=== PATIENT | male | born 1935 | race Two or more races ===

== ENCOUNTER 2017-11-02 12:32 | Emergency (ER) | payer OTHER, MEDICAID ==
[~2017-11-02] VITALS: Ht 188 cm; Wt 86.2 kg
[~2017-11-02 12:32] MED LIST: ALPR0.254 PO; ATEN-60 PO; CLON0.2T PO; FAM20T PO; FURO20TA3 PO; GABA-339; INSLANTI; LEVO100T8 PO; LISI-646 PO; METF-371; POT20T PO; RASA1TAB; ROTI6DIS; SIMV20TA90 PO; SITA100T7 PO; TAMS0.4C36 PO; TRAM-297 PO
[2017-11-02 16:33] VITALS: BP 138/70
== END 2017-11-02 16:53 | disposition home or self-care (01) ==
LOC: ER 12:32
DX: S33.5XXA Sprain of ligaments of lumbar spine, initial encounter (principal); G51.0 Bell's palsy; Z79.4 Long term (current) use of insulin; E11.9 Type 2 diabetes mellitus without complications; I10 Essential (primary) hypertension; G20 Parkinson's disease; M79.1 Myalgia; Z86.73 Personal history of transient ischemic attack (TIA), and cerebral infarction without residual deficits; W18.2XXA Fall in (into) shower or empty bathtub, initial encounter; Y93.89 Activity, other specified; Y92.89 Other specified places as the place of occurrence of the external cause; Y99.8 Other external cause status
CPT/HCPCS: 72100; 93005

== ENCOUNTER 2018-03-04 12:06 | Inpatient (IN) | payer OTHER ==
[~2018-03-04] VITALS: Ht 182.9 cm; Wt 82.5 kg
[2018-03-04] MEDS: InsuLIN REG 1unit/0.01ml Soln (100units/ml) SC SCH ×2 (00:08→17:45)
[2018-03-04] MEDS ORDERED: SODIUM CHLORIDE 0.9% 1,000 ML IVB ONE (13:12)
[2018-03-04 13:23] LABS: Basophils # (auto) 0 uL; Basophils % (auto) 0.6 % (0.0-2.0); Eosinophils # (auto) 0.1 uL; Eosinophils % (auto) 1.8 % (0.0-7.0); Hematocrit 40.1 % (41.0-53.0); Hemoglobin 13.4 g/dL (13.5-17.5); Lymphocytes # (auto) 1.8 uL; Lymphocytes % (auto) 29.7 % (10.0-50.0); Mean Corpuscular Hemoglobin 29.5 pg (28.0-32.0); Mean Corpuscular Hgb Conc. 33.5 g/dL (32.0-36.0); Monocytes # (auto) 0.5 uL; Monocytes % (auto) 7.8 % (0.0-12.0); Neutrophils # (auto) 3.7 uL; Neutrophils % (auto) 60.1 % (37.0-80.0); Nucleated Red Blood Cells % 0.1 %; Platelet Count (auto) 140 10^3/uL (140-450); Red Blood Cells 4.55 10^6/uL (4.5-5.90); Red Cell Distribution Width 13.6 % (11.8-14.3); White Blood Cell 6.1 10^3/uL (4.4-10.8)
[2018-03-04 13:40] LABS: INR 1.06 (0.9-1.15); Partial Thromboplastin Time 27.1 sec (23.78-33.04); Prothrombin Time 11.3 sec (9.27-12.13)
[2018-03-04 13:44] LABS: Alanine Aminotransferase 33 U/L (16-61); Albumin 3.6 g/dL (3.4-5.0); Alkaline Phosphatase 71 U/L (45-117); Anion Gap 4 (5-15); Aspartate Aminotransferase 29 U/L (15-37); BUN/Creatinine Ratio 24.5; Bilirubin, Total 0.8 mg/dL (0.2-1.0); Blood Urea Nitrogen 25 mg/dL (7-18); Calcium 8.4 mg/dL (8.5-10.1); Carbon Dioxide 27 mmol/L (21-32); Chloride 113 mmol/L (98-107); GFR African American 90 mL/min; GFR Non-African American 74 mL/min; Glucose 125 mg/dL (74-106); Potassium 3.9 mmol/L (3.5-5.1); Sodium 144 mmol/L (136-145); Total Protein 7.1 g/dL (6.4-8.2)
[2018-03-04 13:52] LABS: Magnesium 2.1 mg/dL (1.6-2.6)
[2018-03-04] MEDS ORDERED: metroNIDAZOLE 500MG/100ML 100 ML IV ONE ×2 (15:00→16:30)
[2018-03-04] MEDS ORDERED: TAMS1CAP25 PO (15:19)
[2018-03-04] MEDS ORDERED: METO25TA5 PO (15:19)
[2018-03-04] MEDS ORDERED: DONE10TA40 PO (15:19)
[2018-03-04] MEDS ORDERED: TRAZ-220 PO (15:19)
[2018-03-04] MEDS ORDERED: OLAN2.5T32 PO (15:19)
[2018-03-04] MEDS ORDERED: MEMA1TAB2 PO (15:19)
[2018-03-04] MEDS ORDERED: LOSA-46 PO (15:19)
[2018-03-04] MEDS: SODIUM CHLORIDE 0.9% 1,000 ML IV SCH (15:31)
[2018-03-04] MEDS ORDERED: ACETAMINOPHEN 500 MG TAB PO PRN (15:45)
[2018-03-04] MEDS ORDERED: TEMAZEPAM 15 MG CAP PO PRN (15:45)
[2018-03-04] MEDS ORDERED: LORazepam 0.5 MG TAB PO PRN (15:45)
[2018-03-04] MEDS ORDERED: hydrALAZINE HCL 20 MG/ML VL IV PRN (15:45)
[2018-03-04] MEDS ORDERED: ONDANSETRON HCL 4 MG/2 ML VIAL IV PRN (15:45)
[2018-03-04] MEDS ORDERED: MORPHINE SULFATE 4 MG/ML SYR/VIAL IV PRN (15:45)
[2018-03-04] MEDS ORDERED: DEXTROSE (50%) 50ML SYRG IV PRN (15:45)
[2018-03-04] MEDS ORDERED: NITROGLYCERIN 0.4 MG SL TAB SL PRN (15:45)
[2018-03-04] MEDS ORDERED: cefTRIAXone 1GM/10ml IVPUSH 10 ML IV ONE (15:45)
[2018-03-04] MEDS ORDERED: traMADol HCL 50 MG TAB PO PRN ×2 (15:45)
[2018-03-04] MEDS ORDERED: GLUCAGON HYDROCHLORIDE (RDNA) 1 MG VIAL IM ONE ×2 (16:15→16:30)
[2018-03-04 16:31] LABS: Urine Bacteria NONE SEEN /hpf (None Seen); Urine Blood Negative /uL (Negative); Urine Specific Gravity 1.016 (1.001-1.035); Urine WBC 1 /hpf (0 - 3)
[2018-03-04] MEDS: ACCU-CHEK COMFORT CURVE STRIP VI SCH ×2 (17:45→22:00)
[2018-03-04] MEDS: TAMSULOSIN HYDROCHLORIDE 0.4 MG CAP PO SCH (18:00)
[2018-03-04] MEDS: metroNIDAZOLE 500MG/100ML 100 ML IV SCH (18:00)
[2018-03-04] MEDS: traZODone HCL 50 MG TAB PO SCH (23:22)
[2018-03-04] MEDS: DONEPEZIL HYDROCHLORIDE 5 MG TAB PO SCH (23:22)
[2018-03-04] MEDS: MEMANTINE HCL 5 MG TAB PO SCH (23:23)
[2018-03-04] MEDS: GABAPENTIN 300 MG CAP PO SCH (23:24)
[2018-03-04] MEDS: LISINOPRIL 20 MG TAB PO SCH (23:24)
[2018-03-04] MEDS: OLANZapine 5 MG TAB PO SCH (23:26)
[2018-03-05] MEDS ORDERED: metroNIDAZOLE 500MG/100ML 100 ML IV SCH
[2018-03-05] MEDS: metroNIDAZOLE 500MG/100ML 100 ML IV SCH ×5 (00:09→23:23)
[2018-03-05] MEDS: SODIUM CHLORIDE 0.9% 1,000 ML IV SCH (01:37)
[2018-03-05] MEDS: LEVOTHYROXINE SODIUM 100 MCG TAB PO SCH (06:37)
[2018-03-05 06:44] LABS: Basophils # (auto) 0 uL; Basophils % (auto) 0.6 % (0.0-2.0); Eosinophils # (auto) 0.1 uL; Eosinophils % (auto) 2.1 % (0.0-7.0); Hematocrit 40.1 % (41.0-53.0); Hemoglobin 13.5 g/dL (13.5-17.5); Lymphocytes # (auto) 1.3 uL; Lymphocytes % (auto) 27.2 % (10.0-50.0); Mean Corpuscular Hemoglobin 29.4 pg (28.0-32.0); Mean Corpuscular Hgb Conc. 33.7 g/dL (32.0-36.0); Mean Corpuscular Volume 87.3 fL (80.0-100.0); Monocytes # (auto) 0.4 uL; Monocytes % (auto) 7.4 % (0.0-12.0); Neutrophils # (auto) 3.1 uL; Neutrophils % (auto) 62.7 % (37.0-80.0); Nucleated Red Blood Cells % 0.1 %; Platelet Count (auto) 134 10^3/uL (140-450); Red Blood Cells 4.59 10^6/uL (4.5-5.90); Red Cell Distribution Width 13.7 % (11.8-14.3); White Blood Cell 4.9 10^3/uL (4.4-10.8)
[2018-03-05] MEDS: ACCU-CHEK COMFORT CURVE STRIP VI SCH ×4 (06:52→22:26)
[2018-03-05] MEDS: InsuLIN REG 1unit/0.01ml Soln (100units/ml) SC SCH ×4 (06:53→22:26)
[2018-03-05 06:59] LABS: Albumin 3.1 g/dL (3.4-5.0); Calcium 8.1 mg/dL (8.5-10.1); Potassium 3.6 mmol/L (3.5-5.1)
[2018-03-05] MEDS: RASAGILINE 1 MG PO SCH (07:00)
[2018-03-05 07:01] LABS: BUN/Creatinine Ratio 20.5
[2018-03-05 07:03] LABS: Bilirubin, Total 0.6 mg/dL (0.2-1.0); Total Protein 6.4 g/dL (6.4-8.2)
[2018-03-05] MEDS: cefTRIAXone 1GM/10ml IVPUSH 10 ML IV SCH (09:04)
[2018-03-05] MEDS: MEMANTINE HCL 5 MG TAB PO SCH ×2 (09:05→21:53)
[2018-03-05] MEDS: GABAPENTIN 300 MG CAP PO SCH ×2 (09:05→21:53)
[2018-03-05] MEDS: OLANZapine 5 MG TAB PO SCH ×2 (09:06→21:54)
[2018-03-05] MEDS: LISINOPRIL 20 MG TAB PO SCH ×2 (09:07→21:56)
[2018-03-05] MEDS ORDERED: PANTOPRAZOLE 40 MG TAB PO SCH (10:00)
[2018-03-05] MEDS: ROTIGOTINE 6 MG/24 HR TD SCH (10:00)
[2018-03-05] MEDS ORDERED: SENNA 8.6 MG TAB PO PRN (11:45)
[2018-03-05] MEDS ORDERED: SODIUM CHLORIDE 0.9% 1,000 ML IV SCH (11:45)
[2018-03-05] MEDS ORDERED: MINOXIDIL 2.5 MG TAB PO ONE (11:45)
[2018-03-05] MEDS ORDERED: LACTULOSE 20Gm/30ML SOLN PO ONE (11:45)
[2018-03-05] MEDS ORDERED: hydrALAZINE HCL 20 MG/ML VL IV PRN (11:45)
[2018-03-05] MEDS: APIXABAN 5 MG TAB PO SCH ×2 (12:27→21:53)
[2018-03-05] MEDS ORDERED: INFLUENZA QUAD 2018-2019 0.5 ML SYRG IM ONE (14:00)
[2018-03-05] MEDS: SOD CHL 0.45% 1,000 ML IV SCH (15:51)
[2018-03-05 16:30] VITALS: BP 146/71
[2018-03-05] MEDS: TAMSULOSIN HYDROCHLORIDE 0.4 MG CAP PO SCH (17:24)
[2018-03-05] MEDS: DONEPEZIL HYDROCHLORIDE 5 MG TAB PO SCH (21:53)
[2018-03-05] MEDS: traZODone HCL 50 MG TAB PO SCH (21:53)
[2018-03-05] MEDS: PANTOPRAZOLE 40 MG TAB PO SCH (21:53)
[2018-03-05] MEDS: MINOXIDIL 2.5 MG TAB PO SCH (21:56)
[2018-03-05 22:00] VITALS: BP 146/66
[2018-03-06 05:00] VITALS: BP 139/60
[2018-03-06] MEDS: metroNIDAZOLE 500MG/100ML 100 ML IV SCH ×4 (05:32→23:39)
[2018-03-06] MEDS: ACCU-CHEK COMFORT CURVE STRIP VI SCH ×4 (06:12→22:00)
[2018-03-06] MEDS: LEVOTHYROXINE SODIUM 100 MCG TAB PO SCH (06:12)
[2018-03-06] MEDS: InsuLIN REG 1unit/0.01ml Soln (100units/ml) SC SCH ×4 (06:12→22:00)
[2018-03-06] MEDS: SOD CHL 0.45% 1,000 ML IV SCH (06:12)
[2018-03-06] MEDS: RASAGILINE 1 MG PO SCH (06:13)
[2018-03-06 08:00] VITALS: BP 146/66
[2018-03-06 09:00] VITALS: BP 129/65
[2018-03-06] MEDS: ROTIGOTINE 6 MG/24 HR TD SCH (10:00)
[2018-03-06] MEDS: PANTOPRAZOLE 40 MG TAB PO SCH ×2 (10:19→22:34)
[2018-03-06] MEDS: cefTRIAXone 1GM/10ml IVPUSH 10 ML IV SCH (10:19)
[2018-03-06] MEDS: MEMANTINE HCL 5 MG TAB PO SCH ×2 (10:20→22:35)
[2018-03-06] MEDS: APIXABAN 5 MG TAB PO SCH ×2 (10:20→22:37)
[2018-03-06] MEDS: GABAPENTIN 300 MG CAP PO SCH ×2 (10:20→22:34)
[2018-03-06] MEDS: LISINOPRIL 20 MG TAB PO SCH ×2 (10:21→22:37)
[2018-03-06] MEDS: OLANZapine 5 MG TAB PO SCH ×2 (10:21→22:37)
[2018-03-06] MEDS: MINOXIDIL 2.5 MG TAB PO SCH ×2 (10:21→22:34)
[2018-03-06 13:00] VITALS: BP 142/70
[2018-03-06 17:00] VITALS: BP 164/72
[2018-03-06] MEDS: TAMSULOSIN HYDROCHLORIDE 0.4 MG CAP PO SCH (18:48)
[2018-03-06 22:00] VITALS: BP 129/59
[2018-03-06] MEDS: DONEPEZIL HYDROCHLORIDE 5 MG TAB PO SCH (22:35)
[2018-03-06] MEDS: traZODone HCL 50 MG TAB PO SCH (22:36)
[2018-03-07 05:00] VITALS: BP 124/58
[2018-03-07] MEDS: LEVOTHYROXINE SODIUM 100 MCG TAB PO SCH (05:50)
[2018-03-07] MEDS: metroNIDAZOLE 500MG/100ML 100 ML IV SCH (05:50)
[2018-03-07] MEDS: ACCU-CHEK COMFORT CURVE STRIP VI SCH ×2 (05:53→11:56)
[2018-03-07] MEDS: RASAGILINE 1 MG PO SCH (06:02)
[2018-03-07] MEDS: InsuLIN REG 1unit/0.01ml Soln (100units/ml) SC SCH ×2 (06:02→11:57)
[2018-03-07 08:04] LABS: Basophils # (auto) 0 uL; Basophils % (auto) 0.6 % (0.0-2.0); Eosinophils # (auto) 0.1 uL; Eosinophils % (auto) 1.9 % (0.0-7.0); Hematocrit 35.9 % (41.0-53.0); Hemoglobin 12.1 g/dL (13.5-17.5); Lymphocytes # (auto) 1.2 uL; Lymphocytes % (auto) 34.6 % (10.0-50.0); Mean Corpuscular Hemoglobin 29.5 pg (28.0-32.0); Mean Corpuscular Hgb Conc. 33.7 g/dL (32.0-36.0); Mean Corpuscular Volume 87.6 fL (80.0-100.0); Monocytes # (auto) 0.4 uL; Monocytes % (auto) 10.5 % (0.0-12.0); Neutrophils # (auto) 1.9 uL; Neutrophils % (auto) 52.4 % (37.0-80.0); Nucleated Red Blood Cells % 0.1 %; Platelet Count (auto) 146 10^3/uL (140-450); Red Cell Distribution Width 13.8 % (11.8-14.3); White Blood Cell 3.5 10^3/uL (4.4-10.8)
[2018-03-07 08:28] LABS: BUN/Creatinine Ratio 13.8; Calcium 7.3 mg/dL (8.5-10.1); Potassium 3.9 mmol/L (3.5-5.1)
[2018-03-07 09:00] VITALS: BP 115/52
[2018-03-07] MEDS: SOD CHL 0.45% 1,000 ML IV SCH (10:24)
[2018-03-07] MEDS: GABAPENTIN 300 MG CAP PO SCH (10:39)
[2018-03-07] MEDS: MEMANTINE HCL 5 MG TAB PO SCH (10:39)
[2018-03-07] MEDS: MINOXIDIL 2.5 MG TAB PO SCH (10:40)
[2018-03-07] MEDS: APIXABAN 5 MG TAB PO SCH (10:40)
[2018-03-07] MEDS: LISINOPRIL 20 MG TAB PO SCH (10:40)
[2018-03-07] MEDS: PANTOPRAZOLE 40 MG TAB PO SCH (10:40)
[2018-03-07] MEDS: OLANZapine 5 MG TAB PO SCH (10:41)
[2018-03-07] MEDS: ROTIGOTINE 6 MG/24 HR TD SCH (10:41)
[2018-03-07] MEDS ORDERED: MIN25T PO (11:14)
[2018-03-07 12:50] VITALS: BP 115/52
[2018-03-07] MEDS ORDERED: INFLUENZA QUAD 2018-2019 0.5 ML SYRG IM ONE (14:00)
[2018-03-08] MEDS ORDERED: ROTIGOTINE 2 MG/24 HR TD SCH (10:00)
[2018-03-08] MEDS ORDERED: VANC250PO PO (13:13)
== END 2018-03-07 14:32 | disposition home health service (06) | DRG 389 ==
LOC: ER 12:08 → TELE 12:09 → TELE-CENTR 03-05 08:31
PROVIDERS: ADMIT Internal Medicine; ATTEND Hospitalist
DX: K56.41 Fecal impaction (principal); I31.3 Pericardial effusion (noninflammatory); A04.72 Enterocolitis due to Clostridium difficile, not specified as recurrent; K52.9 Noninfective gastroenteritis and colitis, unspecified; K62.89 Other specified diseases of anus and rectum; R00.1 Bradycardia, unspecified; E11.9 Type 2 diabetes mellitus without complications; E78.5 Hyperlipidemia, unspecified; F03.90 Unspecified dementia, unspecified severity, without behavioral disturbance, psychotic disturbance, mood disturbance, and anxiety; G20 Parkinson's disease; N40.0 Benign prostatic hyperplasia without lower urinary tract symptoms; K29.70 Gastritis, unspecified, without bleeding; I70.8 Atherosclerosis of other arteries; M19.90 Unspecified osteoarthritis, unspecified site; K76.89 Other specified diseases of liver; G51.0 Bell's palsy; H54.62 Unqualified visual loss, left eye, normal vision right eye; I11.9 Hypertensive heart disease without heart failure; Z82.49 Family history of ischemic heart disease and other diseases of the circulatory system; Z74.01 Bed confinement status; Z83.3 Family history of diabetes mellitus; Z86.73 Personal history of transient ischemic attack (TIA), and cerebral infarction without residual deficits
CPT/HCPCS: 36415; 71045; 74021; 74176; 80048; 80053; 81001; 82150; 82962; 83036; 83605; 83690; 83735; 84443; 84484; 85025; 85610; 85652; 85730; 86141; 87040; 87086; 87493; 90674; 93005; 93971; 96361; 96365; 96372; 96375; 97110; 97530; J0696; J1815; J3490

== ENCOUNTER 2018-09-07 18:51 | Emergency (ER) | payer OTHER ==
[~2018-09-07] VITALS: Ht 152.4 cm; Wt 95.3 kg
[~2018-09-07 18:51] MED LIST changes: -ALPR0.254 PO; -ATEN-60 PO; -CLON0.2T PO; +DABI150C PO; +DOCU-94 PO; +DONE10TA40 PO; +DOXY-338 PO; -FAM20T PO; +FERR-20 PO; -LISI-646 PO; +LOSA-46 PO; +MEMA1TAB2 PO; +METO25TA5 PO; +MIN25T PO; +OLAN2.5T32 PO; -SITA100T7 PO; -TAMS0.4C36 PO; +TAMS1CAP25 PO; +TEMA15CA PO
[2018-09-07 18:58] VITALS: BP 147/90
[2018-09-07 20:21] LABS: Basophils # (auto) 0 uL; Eosinophils # (auto) 0 uL; Eosinophils % (auto) 0.7 % (0.0-7.0); Lymphocytes # (auto) 0.7 uL; Monocytes # (auto) 0.4 uL; Red Cell Distribution Width 19.5 % (11.8-14.3)
[2018-09-07 20:23] LABS: Basophils % (auto) 0.3 % (0.0-2.0); Hematocrit 31.5 % (41.0-53.0); Hemoglobin 9.8 g/dL (13.5-17.5); Lymphocytes % (auto) 11.4 % (10.0-50.0); Monocytes % (auto) 6.8 % (0.0-12.0); Neutrophils # (auto) 4.9 uL; Neutrophils % (auto) 80.8 % (37.0-80.0); Platelet Count (auto) 139 10^3/uL (140-450); Red Blood Cells 4.26 10^6/uL (4.5-5.90); White Blood Cell 6.1 10^3/uL (4.4-10.8)
[2018-09-07 20:36] LABS: INR 1.39 (0.9-1.15); Partial Thromboplastin Time 39.9 sec (23.78-33.04); Prothrombin Time 14.6 sec (9.27-12.13)
[2018-09-07 20:41] LABS: Alanine Aminotransferase 21 U/L (16-61); Albumin 3.3 g/dL (3.4-5.0); Anion Gap 5 (5-15); Aspartate Aminotransferase 23 U/L (15-37); BUN/Creatinine Ratio 17.3; Blood Urea Nitrogen 19 mg/dL (7-18); Calcium 8.5 mg/dL (8.5-10.1); Carbon Dioxide 30 mmol/L (21-32); Chloride 107 mmol/L (98-107); GFR African American 82 mL/min; GFR Non-African American 68 mL/min; Glucose 184 mg/dL (74-106); Magnesium 2.1 mg/dL (1.6-2.6); Sodium 142 mmol/L (136-145)
[2018-09-07 20:46] LABS: Alkaline Phosphatase 99 U/L (45-117); Bilirubin, Total 0.6 mg/dL (0.2-1.0)
[2018-09-07 21:48] LABS: Urine WBC None Seen /hpf (0 - 3)
[2018-09-07 22:10] LABS: Urine Bacteria NONE SEEN /hpf (None Seen); Urine Blood 1+ /uL (Negative); Urine Specific Gravity 1.013 (1.001-1.035)
== END 2018-09-07 22:57 | disposition left against medical advice (07) ==
LOC: EDBD 18:51 → ER 18:56
DX: I51.7 Cardiomegaly (principal); R06.02 Shortness of breath; R05 Cough; R60.9 Edema, unspecified; I11.0 Hypertensive heart disease with heart failure; I50.9 Heart failure, unspecified; I48.91 Unspecified atrial fibrillation; E11.9 Type 2 diabetes mellitus without complications; E78.00 Pure hypercholesterolemia, unspecified; Z86.73 Personal history of transient ischemic attack (TIA), and cerebral infarction without residual deficits
CPT/HCPCS: 36415; 71045; 80053; 81001; 83735; 83880; 84484; 85025; 85610; 85730; 93005